=== PATIENT | male | born 1965 | race Caucasian/White ===

== ENCOUNTER 2018-01-14 08:06 | Day surgery (SDC) | payer MEDICAID ==
[~2018-01-14] VITALS: Ht 170.2 cm; Wt 80.7 kg
[2018-01-14] MEDS ORDERED: BLOOD GLUCOSE MONITORING 1 DEV DEV FS ONE (09:00)
[2018-01-14] MEDS ORDERED: LISI2.5T12 PO (09:19)
[2018-01-14] MEDS ORDERED: OMEP20TC12 PO (09:19)
[2018-01-14] MEDS ORDERED: GLYB5TAB13 PO (09:19)
[2018-01-14] MEDS ORDERED: METF500T2 PO (09:19)
[2018-01-14] MEDS ORDERED: SITA100T8 PO (09:19)
[2018-01-14] MEDS ORDERED: ORE25 PO (09:19)
[2018-01-14] MEDS ORDERED: LIDOCAINE 2% 100 MG/5 ML UJET TP ONE (10:17)
[2018-01-14] MEDS ORDERED: KETOROLAC 30 MG/ML VIAL ONE (10:50)
== END 2018-01-14 11:34 | disposition home or self-care (01) ==
LOC: MDS 08:06 → MMU 08:07 → MDS 11:34
PROVIDERS: ATTEND Internal Medicine Gastroenterology
DX: R10.32 Left lower quadrant pain (principal); I10 Essential (primary) hypertension; E11.9 Type 2 diabetes mellitus without complications; E78.5 Hyperlipidemia, unspecified; E78.00 Pure hypercholesterolemia, unspecified; Z98.49 Cataract extraction status, unspecified eye; Z79.899 Other long term (current) drug therapy; Z98.890 Other specified postprocedural states; Z79.84 Long term (current) use of oral hypoglycemic drugs
CPT/HCPCS: 45378; 82948; J1885